=== PATIENT | male | born 1985 | race Two or more races ===

== ENCOUNTER 2024-03-27 06:06 | Day surgery (SDC) | payer OTHER ==
[2024-03-23 12:33] LABS: INR 1.02; PARTIAL THROMBOPLASTIN TIME 31.7 SECONDS (22.0-34.0); PROTHROMBIN TIME 11.1 SECONDS (9.0-11.5)
[~2024-03-27 06:06] MED LIST: TRAZODONE HCL150 MG PO
[2024-03-27] MEDS ORDERED: CLINDAMYCIN PHOSPHATE 150 MG/ML (900mg) ONE (11:49)
[2024-03-27] MEDS ORDERED: BUPIVACAINE HCL/MPF 0.5% 30ML VIAL ONE (14:29)
== END 2024-03-27 21:45 | disposition home or self-care (01) ==
LOC: CIR.AMB 06:06
PROVIDERS: ATTEND Orthopaedic Surgery Hand Surgery
DX: S56.123A Laceration of flexor muscle, fascia and tendon of right middle finger at forearm level, initial encounter (principal); S56.125A Laceration of flexor muscle, fascia and tendon of right ring finger at forearm level, initial encounter; K56.609 Unspecified intestinal obstruction, unspecified as to partial versus complete obstruction; Z88.0 Allergy status to penicillin